=== PATIENT | male | born 1945 | race Caucasian/White ===

== ENCOUNTER 2019-11-03 12:14 | Outpatient (CLI) | payer MEDICARE, OTHER, SELFPAY ==
--- NOTE | 2019-11-03 12:23 | XR_ITS ---
WS: [id number] CHEST 2 VIEWS HISTORY: HYPOXIA COMPARISON: 01/04/2019 Lungs: Very minimal scarring or atelectasis at the LEFT lung base/lingula which was present on the pr ior study. On the lateral projection there is an increased opacification over the costophrenic angles which is probably related to the LEFT lower lung field chronic opacification. No pneumonia. No pneum othorax or pleural effusion. Cardiac size: Normal. Mediastinum/Aorta: Normal mediastinum. Bones: Normal. XR/XR chest 2V* [id number] IMPRESSION: Stable chest, no pneumonia.
== END 2019-11-03 12:15 | disposition home or self-care (01) ==
PROVIDERS: Family Provider Internal Medicine; PCP Internal Medicine; Visit Provider Nurse Practitioner Family
DX: R09.02 Hypoxemia (principal)
CPT/HCPCS: 71046

== ENCOUNTER → 2019-12-05 07:59 | Outpatient (BNVA) | payer MEDICARE, OTHER, SELFPAY | PROVIDERS: Family Provider Internal Medicine; PCP Internal Medicine; Referring Provider Internal Medicine; Visit Provider Specialist | DX: R41.9 Unspecified symptoms and signs involving cognitive functions and awareness (principal); G47.33 Obstructive sleep apnea (adult) (pediatric) | CPT/HCPCS: 99204 ==

== ENCOUNTER 2019-12-21 10:37 | Outpatient (CLI) | payer MEDICARE, OTHER, SELFPAY ==
--- NOTE | 2019-12-21 10:57 | NMCV_ITS ---
NM ziggy perf SPECT r/s* [id number] Obey Fatima Age: 74 Gender: M : 1945 Exam Date: 12/21/2019 11:41 Ordering Phys: Mirna Prabhakar MD Technologist: HARJINDER Guadalupe Exam Location: [facility] [place] Indications: Chest pain STRESS TEST Please see separate stress test report in [facility] for full findings IMAGE PROTOCOL Rest/Stress 1 Lexiscan Day Radiopharmaceutical Dose (mCi) Administration Site Administered by Rest: Tc-99m 10.7 IV Dinora Rhodes, ACADEMIC COORDINATOR Sestamibi Stress:Tc-99m 32.4 IV Dinora Rhodes, ACADEMIC COORDINATOR Sestamibi Rest: 21-Dec-2019 60 Discovery 630 Stress: 21-Dec-2019 45 Discovery 630 0.4mg Lexiscan. Images obtained in supine and prone position. SPECT RESULTS Technical Quality: Good Raw Data Analysis: Normal Image Corrections: No attenuation or motion correction applied Summed Stress Score: 2 Summed Rest Score: 2 Summed Difference Score: 0 PERFUSION FINDINGS Small sized perfusion abnormality of mild severity of mid inferior wall on rest and supine stress images with improved tracer uptake in prone stress images. This is suggestive of attenuation artifact. FUNCTIONAL RESULTS (calculated via Gated SPECT) Stress Image LV EF (%): 61 Stress EDV (mL):102 TID: 1.25 Stress ESV (mL):40 FUNCTIONAL FINDINGS: The left ventricle is normal in size. Transient Ischemia Dilatation of 1.3. There is normal left ventricular systolic function. The left ventricular ejection fraction is normal with a value of 61%. There is normal left ventricular wall thickening. Normal end systolic and end diastolic volumes. IMPRESSIONS 1. Myocardial perfusion imaging is normal. Attenuation artifact noted in mid inferior wall. 2. Overall left ventricular systolic function is normal without regional wall motion abnormalities. 3. The left ventricular ejection fraction is normal with a value of 61%. 4. Transient Ischemia Dilatation of 1.3. This may represent subendocardial ischemia or hypertensive response. Clinical correlation is advised. 5. No prior similar studies to compare. Cass Le MD (Electronically Signed) Final Date: 22 December 2019 20:58 S
--- NOTE | 2019-12-21 10:57 | ECG_ITS ---
[facility] Test Date: 2019-12-21 Pat Name: Obey Fatima Department: Room: Gender: Male [employer]ing [employer] Tender: : 1945 Requested By: Mirna Chery Order Number: [id number] Daija MD: Cass Le M.D. Interpretive Statements NAME OF STUDY: LEXISCAN SESTAMIBI STRESS TEST INDICATION: Chest Pain PROCEDURE: At the baseline, the blood pressure was 112/66 mm Hg with a heart rate of 56 bpm. The electrocardiogram showed normal sinus rhythm, normal axis and normal ST and T's. The Lexiscan was infused over a period of 20 seconds. A total of 0.4 milligrams of Lexiscan was infused. The stress phase was continued for a total of 5 minutes. Heart rate at the end of the stress phase was 75 bpm with a blood pressure of 125/61 mm Hg. The EKG at the peak infusion revealed no significant ST-T wave changes. Sestamibi was injected 20 seconds after the Lexiscan infusion. Blood pressure at the end of the recovery phase was 123/66 mm Hg with a heart rate of 72 beats per minute. CONCLUSION: 1. Normal EKG response to LexiScan infusion. 2. No LexiScan induced chest pain or cardiac arrhythmia. 3. Normal blood pressure and heart rate response. 4. Sestamibi/sestamibi perfusion scan pending; see separate report. Electronically Signed On 12-21-2019 20:20:36 CDT by Cass Le M.D. [email or web address]
[2019-12-21 10:58] VITALS: BMI 25.7
[2019-12-21] MEDS: regadenoson 0.4 Mg/5 ml Syringe IVP (12:37)
[2019-12-21 12:50] VITALS: BP 122/60; PULSE 72
== END 2019-12-21 10:38 | disposition home or self-care (01) ==
LOC: CDL 10:38
PROVIDERS: PCP Internal Medicine; Visit Provider Internal Medicine
DX: R07.9 Chest pain, unspecified (principal); I25.9 Chronic ischemic heart disease, unspecified
CPT/HCPCS: 78452; 93017; A9500; J2785

== ENCOUNTER 2019-12-27 20:00 | Outpatient (CLI) | payer MEDICARE, OTHER, SELFPAY | END 2019-12-27 20:01 | disposition home or self-care (01) | LOC: SLEEP 12-28 11:31 | PROVIDERS: PCP Internal Medicine; Visit Provider Specialist | DX: G47.33 Obstructive sleep apnea (adult) (pediatric) (principal) | CPT/HCPCS: 95810 ==

== ENCOUNTER 2020-01-15 20:00 | Outpatient (CLI) | payer MEDICARE, OTHER, SELFPAY | END 2020-01-15 20:01 | disposition home or self-care (01) | LOC: SLEEP 01-16 09:03 | PROVIDERS: PCP Internal Medicine; Visit Provider Specialist | DX: G47.33 Obstructive sleep apnea (adult) (pediatric) (principal) | CPT/HCPCS: 95811 ==

== ENCOUNTER 2020-03-04 12:43 | Outpatient (CLI) | payer MEDICARE, OTHER, SELFPAY ==
--- NOTE | 2020-03-04 12:51 | XR_ITS ---
WS: [id number] RIBS RIGHT WITH CHEST TECHNIQUE: 3 views of the right ribs with PA chest CLINICAL INFORMATION: PAIN IN RIB, S/P TRAUMA COMPARISON: November 03, 2019 and FINDINGS: Lungs are well aerated. No acute pulmonary infiltrates. Normal cardiac silhouette. No focal pneumonia or pleural fluid. Cortical irregularity right lower lateral ribs involving the ninth and 10th ribs anterolaterally appe ars new since 2019 and likely represents acute to subacute rib fractures. No displaced fractures. No pneumothorax. XR/XR ribs RT mn 3V w CXR1V [id number] IMPRESSION: 1. Suspected right ninth and 10th distal anterolateral minimally displaced rib fractures. These appear new since 2019. 2. No displaced rib fractures. 3. Lungs are well aerated. No pneumothorax.
== END 2020-03-04 12:44 | disposition home or self-care (01) ==
LOC: RADWPI 12:49
PROVIDERS: PCP Internal Medicine; Visit Provider Internal Medicine
DX: R07.81 Pleurodynia (principal)
CPT/HCPCS: 71101

== ENCOUNTER → 2020-03-06 07:43 | Outpatient (BNVA) | payer MEDICARE, OTHER, SELFPAY | PROVIDERS: PCP Internal Medicine; Visit Provider Urology | DX: Z12.5 Encounter for screening for malignant neoplasm of prostate (principal); E29.1 Testicular hypofunction; N40.1 Benign prostatic hyperplasia with lower urinary tract symptoms; R35.8 Other polyuria; Z80.42 Family history of malignant neoplasm of prostate; N52.9 Male erectile dysfunction, unspecified | CPT/HCPCS: 81003; 84403; G0103 ==

== ENCOUNTER 2021-01-13 09:01 | Outpatient (CLI) | payer MEDICARE, OTHER, SELFPAY ==
--- NOTE | 2021-01-13 09:17 | CT_ITS ---
WS: [id number] CT NECK TECHNIQUE: Contrast-enhanced CT of the neck with coronal and sagittal reformatted images. CLINICAL INFORMATION: LYMPHADENOPATHY COMPARISON: None. DLP: 1061.[address] [facility] use at least one of these dose optimization techniques: automated e xposure control; mA and/or kV adjustment per patient size (includes targeted exams where dose is matc hed to clinical indication); or iterative reconstruction. FINDINGS: Palpable marker in the left lower neck in the area of concern. Tiny amount of skin thickening in this area with a tiny cutaneous and subcutaneous nodule measuring 3 mm likely tiny sebaceous cyst. This h as a benign appearance. Small traversing vein and this area. No suspicious abnormality in this area. Parotid glands are normal. Normal submandibular glands. Normal parapharyngeal fat. No evidence of sup raglottic or glottic mass. Normal vallecula and piriform sinuses. No subglottic stenosis. Lung apices are well aerated. Mastoid air cells are well aerated. Paranasal sinuses are well aerated. Mild spondylitic changes cerv ical spine with hypertrophic changes at C6-7. No cervical lymphadenopathy. Small amount of atheromato us plaque right proximal ICA. No significant left carotid atheromatous plaque. CT/CT neck w con* [id number] IMPRESSION: 1. No suspicious abnormalities in the area of palpable concern left lower neck . There is a tiny area of nodular skin thickening in this area likely a tiny se baceous cyst. 2. Normal salivary glands. 3. No cervical lymphadenopathy. 4. Mild spondylitic changes cervical spine. 5. Mild atheromatous plaque right proximal ICA
[2021-01-13 09:44] LABS: Blood Urea Nitrogen 16 mg/dL (8-23)
[2021-01-13] MEDS: iohexol 300 mg/mL 100 mL Btl IV (09:50)
== END 2021-01-13 09:02 | disposition home or self-care (01) ==
PROVIDERS: PCP Internal Medicine; Visit Provider Internal Medicine
DX: R59.1 Generalized enlarged lymph nodes (principal); I70.8 Atherosclerosis of other arteries
CPT/HCPCS: 70491; 82565; 84520; Q9967

== ENCOUNTER → 2021-01-14 08:10 | Outpatient (BNVA) | payer MEDICARE, OTHER, SELFPAY | PROVIDERS: PCP Internal Medicine; Visit Provider Urology | DX: N52.9 Male erectile dysfunction, unspecified (principal); N40.1 Benign prostatic hyperplasia with lower urinary tract symptoms; Z80.42 Family history of malignant neoplasm of prostate | CPT/HCPCS: 81003; 84153; 84403 ==

== ENCOUNTER → 2021-08-08 08:40 | Outpatient (BNVA) | payer MEDICARE, OTHER, SELFPAY | PROVIDERS: PCP Internal Medicine; Visit Provider Specialist | DX: G31.84 Mild cognitive impairment of uncertain or unknown etiology (principal); G45.9 Transient cerebral ischemic attack, unspecified; E16.2 Hypoglycemia, unspecified; G47.33 Obstructive sleep apnea (adult) (pediatric) | CPT/HCPCS: 96116; 99214; 99215 ==

== ENCOUNTER 2021-09-30 10:30 | Outpatient (CLI) | payer MEDICARE, OTHER, SELFPAY ==
--- NOTE | 2021-09-30 11:00 | MR_ITS ---
WS: [id number] MRA HEAD TECHNIQUE: Axial 3-D TOF images obtained with axial images and axial, sagittal, and coronal 2-D refor matted images. CLINICAL INFORMATION: G45.9 - Transient cerebral ischemic attack, unspecified COMPARISON: None. FINDINGS: Distal vertebral arteries are patent. Basilar artery is patent. Normal vascularity to the BOWL[employer] territo ry bilaterally. Both ICAs are patent at the skull base. Normal variant hypoplastic RIGHT A1. Normal vascularity to th e DARIO and MCA territories bilaterally. Patent anterior communicating artery. No evidence of flow-limi ting stenosis or aneurysm. MR/MR angio head wo con [id number] IMPRESSION: Normal intracranial MRA.
== END 2021-09-30 10:31 | disposition home or self-care (01) ==
LOC: RAD 10:32
PROVIDERS: PCP Internal Medicine; Visit Provider Specialist
DX: G45.9 Transient cerebral ischemic attack, unspecified (principal)
CPT/HCPCS: 70544

== ENCOUNTER 2021-09-30 10:31 | Outpatient (CLI) | payer MEDICARE, OTHER, SELFPAY ==
--- NOTE | 2021-09-30 11:15 | MR_ITS ---
WS: [id number] MRI HEAD WITHOUT CONTRAST TECHNIQUE: Sagittal T1, T2 axial, T2 axial FLAIR, axial and coronal T1 images, axial susceptibility w eighted imaging, axial diffusion weighted images, and coronal T2 images were obtained. CLINICAL INFORMATION: G45.9 - Transient cerebral ischemic attack, unspecified COMPARISON: Outside MRI July 23, 2020 FINDINGS: No evidence of restricted diffusion to suggest acute ischemia. Ventricular system and basal cisterns are patent. Mild small vessel changes with mild parenchymal volume loss appears stable compared to Ma y 2020. Normal posterior fossa. Normal vascular flow voids at the skull base. No extra axial flui d collections. No evidence of mass or mass effect. Partial opacification of the LEFT mastoid air cell s. Normal posterior nasopharynx. Mio is normal in appearance. Normal brain stem. No hemosiderin on the susceptibly weighted images. Mild symmetric atrophy temporal lobes and hippocam pal formations. Normal optic chiasm and pituitary infundibulum. Normal cavernous sinuses and Meckel's cave. No other significant findings. MR/MR head wo con* [id number] IMPRESSION: 1. No evidence of restricted diffusion to suggest acute ischemia. 2. Mild small vessel changes with mild parenchymal volume loss unchanged since Jul 23 2020. 3. No hemosiderin on susceptibly weighted images. 4. Mild symmetric atrophy temporal lobes and hippocampal formations. 5. Normal optic chiasm and pituitary infundibulum. 6. Partial opacification LEFT mastoid air cells unchanged from previous. RIGHT mastoid air cells well aerated. Mild mucosal thickening in the ethmoid air dinesh ls. 7. No other significant findings.
--- NOTE | 2021-09-30 12:00 | MR_ITS ---
WS: [id number] MRA CAROTID WITHOUT GADOLINIUM ENHANCEMENT TECHNIQUE: Axial 2-D and 3-D TOF images obtained with axial images and axial, sagittal, and coronal 2 -D reformatted images. CLINICAL INFORMATION: G45.9 - Transient cerebral ischemic attack, unspecified COMPARISON: None. FINDINGS: Codominant and patent vertebral arteries bilaterally. RIGHT: RIGHT common carotid artery is patent. No significant RIGHT ICA stenosis. Mild atheromatous pl aque RIGHT carotid bulb. RIGHT ICA is patent to the skull base. LEFT: LEFT common carotid artery is patent. No signal LEFT ICA stenosis. LEFT ICA is patent to the sk ull base. Posterior nasopharynx appears normal. No cervical lymphadenopathy. MR/MR angio neck wo con [id number] IMPRESSION: 1. No significant ICA stenosis bilaterally. Both ICAs are patent to the skull base. 2. Mild atheromatous plaque RIGHT carotid bulb 3. Codominant and patent vertebral arteries bilaterally. 4. No other significant findings.
== END 2021-09-30 10:32 | disposition home or self-care (01) ==
LOC: RAD 10:32
PROVIDERS: PCP Internal Medicine; Visit Provider Specialist
DX: G45.9 Transient cerebral ischemic attack, unspecified (principal)
CPT/HCPCS: 70544; 70547; 70551

== ENCOUNTER 2021-10-03 10:32 | Outpatient (CLI) | payer MEDICARE, OTHER, SELFPAY ==
[2021-10-03] MEDS: barium sulfate 450 mL Oral Susp PO (11:45)
--- NOTE | 2021-10-03 12:00 | CT_ITS ---
WS: [id number] CT ABDOMEN TECHNIQUE: Noncontrast CT of the abdomen with coronal and sagittal reformatted images. Oral contrast only. 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 FINDINGS: Noncontrast CT of the abdomen. Oral contrast only. Noncontrast liver is normal. Normal GE junction. Normal gallbladder. Spleen is normal. Lung bases are well aerated. Noncontrast pancreas is normal. Normal caliber abdominal aorta. Mild aortic calcification. Adrenal gl ands are normal. No hydronephrosis in either kidney. Tiny incidental fat-containing umbilical hernia. Proximal small bowel is normal in appearance. Hypertrophic changes lower thoracic and upper lumbar spine. No adenopathy in the upper abdomen. CT/CT abdomen wo con [id number] IMPRESSION: 1. No acute findings in the abdomen. 2. Noncontrast pancreas is normal in appearance. No visualized pancreatic lesi ons on this noncontrast examination. MRI would be more sensitive for small panc reatic lesions if clinically indicated. 3. Normal caliber abdominal aorta with mild calcification. 4. Hypertrophic changes lower thoracic and upper lumbar spine. 5. No other significant findings.
== END 2021-10-03 10:33 | disposition home or self-care (01) ==
LOC: RAD 10:33
PROVIDERS: PCP Internal Medicine; Visit Provider Specialist
DX: D13.7 Benign neoplasm of endocrine pancreas (principal)
CPT/HCPCS: 74150

== ENCOUNTER → 2021-10-24 09:49 | Outpatient (BNVA) | payer MEDICARE, OTHER, SELFPAY | PROVIDERS: PCP Internal Medicine; Visit Provider Specialist | DX: G31.84 Mild cognitive impairment of uncertain or unknown etiology (principal) | CPT/HCPCS: 99214 ==

== ENCOUNTER 2022-01-05 12:49 | Outpatient (CLI) | payer MEDICARE, OTHER, SELFPAY ==
[2022-01-05 14:16] LABS: Prostate Specific AG Urology 1.11 ng/mL (0-4)
== END 2022-01-05 12:50 | disposition home or self-care (01) ==
PROVIDERS: PCP Internal Medicine; Visit Provider Urology
DX: N40.1 Benign prostatic hyperplasia with lower urinary tract symptoms (principal)
CPT/HCPCS: 36415; 84153

== ENCOUNTER → 2022-01-15 07:49 | Outpatient (BNVA) | payer MEDICARE, OTHER, SELFPAY | PROVIDERS: PCP Internal Medicine; Visit Provider Urology | DX: N40.1 Benign prostatic hyperplasia with lower urinary tract symptoms (principal); Z80.42 Family history of malignant neoplasm of prostate; N52.9 Male erectile dysfunction, unspecified | CPT/HCPCS: 81003; 99213 ==

== ENCOUNTER 2022-07-30 11:20 | Outpatient (CLI) | payer MEDICARE, OTHER, SELFPAY ==
--- NOTE | 2022-07-30 11:38 | MR_ITS ---
WS: [id number] MRI LUMBAR SPINE NONCONTRAST HISTORY: RADICULOPATHY, pain down both legs. COMPARISON: None available. TECHNIQUE: Sagittal and axial multisequence imaging is submitted. Small LEFT foraminal disc protrusion at C7-T1. Very mild straightening of the normal lumbar lordosis. Less than 2 mm retrolisthesis of L3 and L4. No marrow edema or fracture. Disc spaces are mildly desiccated and narrowed. Conus terminates normally at L1. L1-L2: Mild facet arthritis. No stenosis or disc protrusion. L2-L3: Moderate bilateral ligamentum flavum and facet joint arthritis encroaching towards the thecal sac. Annular disc bulging and osteophytes. Shallow LEFT foraminal disc protrusion. Mild encroachment upon the subarticular recesses and the traversing L3 nerve roots. No significant foraminal stenosis. L3-L4: Mild annular disc bulging with mild ligamentum flavum and facet arthritis. Shallow LEFT forami nal disc protrusion. Mild encroachment upon the subarticular recesses and the traversing L4 nerve roman ts. No significant stenosis. L4-L5: Mild annular disc bulging encroaching upon the subarticular recesses and the traversing L5 ner ve roots. Mild ligamentum flavum and facet arthritis. No significant foraminal or central stenosis. L5-S1: Mild disc bulging with a central and LEFT foraminal disc protrusions moderate ligamentum flavu m and facet hypertrophy. Disc and osteophyte contact on the S1 nerve roots, LEFT greater than RIGHT. Moderate LEFT foraminal stenosis. Mild disc contact on the exiting LEFT L5 nerve root. Paravertebral soft tissues are normal. MR/MR lumbar spine wo con* [id number] IMPRESSION: 1. L5-S1: Moderate LEFT foraminal stenosis. 2. L5-S1: Central and LEFT foraminal disc protrusions and facet arthritis. Dis c contact on the S1 nerve roots, LEFT greater than RIGHT. 3. L2-3: Shallow LEFT foraminal disc protrusion at L2-3. Mild disc encroachmen t upon the subarticular recesses and the traversing L3 nerve roots. 4. L3-4: Shallow LEFT foraminal disc protrusion. Mild disc encroachment upon t he subarticular recesses and the traversing L4 nerve roots. 5. L4-5: Mild subarticular recess encroachment with encroachment upon the cheri ersing L5 nerve roots. 6. LEFT foraminal disc protrusion at C7-T1.
== END 2022-07-30 11:21 | disposition home or self-care (01) ==
LOC: RAD 11:22
PROVIDERS: PCP Internal Medicine; Visit Provider Surgery
DX: M51.17 Intervertebral disc disorders with radiculopathy, lumbosacral region (principal); M48.07 Spinal stenosis, lumbosacral region; M25.78 Osteophyte, vertebrae
CPT/HCPCS: 72148

== ENCOUNTER → 2022-11-11 14:36 | Outpatient (BNVA) | payer MEDICARE, OTHER, SELFPAY | PROVIDERS: PCP Internal Medicine; Visit Provider Specialist | DX: R29.90 Unspecified symptoms and signs involving the nervous system (principal); G31.84 Mild cognitive impairment of uncertain or unknown etiology | CPT/HCPCS: 96116; 99215 ==

== ENCOUNTER 2022-11-23 09:07 | Outpatient (CLI) | payer MEDICARE, OTHER, SELFPAY ==
[2022-11-30 22:55] LABS: Amyloid Beta 40 189 pg/mL; Amyloid Beta 42 30 pg/mL; Amyloid Beta 42/40 Ratio 0.159 (> OR = 0.170)
[2022-12-03 12:34] LABS: Apolipoprotein E (ApoE) Isofor E4/E4
== END 2022-11-23 09:08 | disposition home or self-care (01) ==
PROVIDERS: PCP Internal Medicine; Visit Provider Specialist
DX: G31.84 Mild cognitive impairment of uncertain or unknown etiology (principal)
CPT/HCPCS: 0346U; 36415; 82542

== ENCOUNTER → 2022-12-18 11:45 | Outpatient (BNVA) | payer MEDICARE, OTHER, SELFPAY | PROVIDERS: PCP Internal Medicine; Visit Provider Specialist | DX: K75.9 Inflammatory liver disease, unspecified (principal); G31.84 Mild cognitive impairment of uncertain or unknown etiology | CPT/HCPCS: 99215 ==

== ENCOUNTER → 2023-03-23 08:32 | Outpatient (BNVA) | payer MEDICARE, OTHER, SELFPAY | PROVIDERS: PCP Internal Medicine; Visit Provider Specialist | DX: G31.84 Mild cognitive impairment of uncertain or unknown etiology (principal); K75.9 Inflammatory liver disease, unspecified | CPT/HCPCS: 99214 ==

== ENCOUNTER 2023-04-05 13:00 | Outpatient (CLI) | payer MEDICARE, OTHER, SELFPAY | END 2023-04-05 13:01 | disposition home or self-care (01) | LOC: SLEEP 04-06 10:39 | PROVIDERS: PCP Internal Medicine; Visit Provider Otolaryngology | DX: G47.33 Obstructive sleep apnea (adult) (pediatric) (principal); R09.02 Hypoxemia | CPT/HCPCS: G0399 ==

== ENCOUNTER → 2023-07-13 09:09 | Outpatient (BNVA) | payer MEDICARE, OTHER, SELFPAY | PROVIDERS: PCP Internal Medicine; Visit Provider Specialist | DX: G31.84 Mild cognitive impairment of uncertain or unknown etiology (principal) | CPT/HCPCS: 99213 ==

== ENCOUNTER → 2023-08-26 09:30 | Outpatient (BNVA) | payer MEDICARE, OTHER, SELFPAY | PROVIDERS: PCP Internal Medicine; Visit Provider Nurse Practitioner Family | DX: D48.5 Neoplasm of uncertain behavior of skin (principal); L57.0 Actinic keratosis; L71.8 Other rosacea; L82.1 Other seborrheic keratosis; D22.5 Melanocytic nevi of trunk | CPT/HCPCS: 11102; 17000; 99203 ==

== ENCOUNTER → 2023-09-21 09:05 | Outpatient (BNVA) | payer MEDICARE, OTHER, SELFPAY | PROVIDERS: PCP Internal Medicine; Visit Provider Dermatology | DX: C44.319 Basal cell carcinoma of skin of other parts of face (principal) | CPT/HCPCS: 13132; 17311 ==

== ENCOUNTER → 2023-12-31 14:06 | Outpatient (BNVA) | payer MEDICARE, OTHER, SELFPAY | PROVIDERS: PCP Internal Medicine; Visit Provider Specialist | DX: G31.84 Mild cognitive impairment of uncertain or unknown etiology (principal); R03.0 Elevated blood-pressure reading, without diagnosis of hypertension | CPT/HCPCS: 96116; 99214; 99215 ==

== ENCOUNTER 2024-01-26 12:40 | Outpatient (CLI) | payer MEDICARE, OTHER, SELFPAY | END 2024-01-26 12:41 | disposition home or self-care (01) | PROVIDERS: PCP Internal Medicine; Visit Provider Specialist | DX: G31.84 Mild cognitive impairment of uncertain or unknown etiology (principal) | CPT/HCPCS: 36415; 83520 ==

== ENCOUNTER → 2024-03-14 08:54 | Outpatient (BNVA) | payer MEDICARE, OTHER, SELFPAY | PROVIDERS: PCP Internal Medicine; Visit Provider Nurse Practitioner Family | DX: L82.1 Other seborrheic keratosis (principal); D22.5 Melanocytic nevi of trunk; Z08 Encounter for follow-up examination after completed treatment for malignant neoplasm; Z85.828 Personal history of other malignant neoplasm of skin; D48.5 Neoplasm of uncertain behavior of skin; L57.0 Actinic keratosis | CPT/HCPCS: 11102; 17000; 99213 ==

== ENCOUNTER → 2024-04-04 13:54 | Outpatient (BNVA) | payer MEDICARE, OTHER, SELFPAY | PROVIDERS: PCP Internal Medicine; Visit Provider Specialist | DX: G31.84 Mild cognitive impairment of uncertain or unknown etiology (principal); R03.0 Elevated blood-pressure reading, without diagnosis of hypertension | CPT/HCPCS: 99215 ==

== ENCOUNTER 2024-07-21 08:53 | Outpatient (CLI) | payer MEDICARE, OTHER, SELFPAY ==
--- NOTE | 2024-07-21 08:56 | MR_ITS ---
WS: [id number] MRI HEAD WITH CONTRAST WITH ATTENTION TO THE INTERNAL AUDITORY CANALS TECHNIQUE: Sagittal T1, T2 axial, T2 axial flair, axial susceptibility weighted imaging, axial diffusion weighted images, and coronal T2 images were obtained. Pre and post T1 axial and post T1 coronal images. ADC and FSPGR images. Post gadolinium images with attention to the internal auditory canals. Axial fiesta imaging. CLINICAL INFORMATION: DIZZINESS/GIDDINESS COMPARISON: MRI 2021 FINDINGS: No evidence of restricted diffusion to suggest acute ischemia. Ventricular system and basal cisterns are patent. Mild small vessel changes. Mild to moderate parenchymal volume loss. Normal posterior fossa. Normal vascular flow voids at the skull base. No extra-axial fluid collections. Paranasal sinuses are well aerated. Mild mucosal thickening LEFT mastoid air cells. Normal posterior nasopharynx. No hemosiderin. Normal optic chiasm and pituitary infundibulum. Proximal 7th and 8th cranial nerves are normal in appearance. Normal trigeminal nerve root entry zones. No evidence of enhancing IAC or CP angle mass. No abnormal intracranial enhancement. Normal dural venous sinuses. MR/MR iac's wo/w con* [id number] IMPRESSION: 1. No evidence of restricted diffusion to suggest acute ischemia. 2. Mild small vessel changes with mild to moderate parenchymal volume loss. 3. 7th and 8th cranial nerves are normal in appearance. No evidence of enhanci ng IAC or CP angle mass. 4. Paranasal sinuses are well aerated. Mild mucosal thickening LEFT mastoid ai r cells. 5. No hemosiderin.
[2024-07-21] MEDS: gadobenate dimeglumine 20 mL vial IV (09:40)
== END 2024-07-21 08:54 | disposition home or self-care (01) ==
LOC: RAD 08:54
PROVIDERS: PCP Internal Medicine; Visit Provider Specialist
DX: R42 Dizziness and giddiness (principal); R93.0 Abnormal findings on diagnostic imaging of skull and head, not elsewhere classified; H74.8X2 Other specified disorders of left middle ear and mastoid
CPT/HCPCS: 70553

== ENCOUNTER → 2024-07-25 07:56 | Outpatient (BNVA) | payer MEDICARE, OTHER, SELFPAY | PROVIDERS: PCP Internal Medicine; Visit Provider Specialist | DX: G31.84 Mild cognitive impairment of uncertain or unknown etiology (principal); R03.0 Elevated blood-pressure reading, without diagnosis of hypertension | CPT/HCPCS: 99214 ==

== ENCOUNTER 2024-08-01 11:46 | Outpatient (CLI) | payer MEDICARE, OTHER, SELFPAY ==
[2024-08-01 12:46] LABS: Basophils # 0.1 10^3/uL (0.0-0.1); Eosinophils # 0.1 10^3/uL (0.0-0.8); Eosinophils % 1.5 %; Hematocrit 45.3 % (37-53); Lymphocytes # 1.8 10^3/uL (0.8-4.8); Lymphocytes % 25.4 %; Mean Corpuscular HGB Conc 34.2 g/dL (30-55); Mean Corpuscular Hemoglobin 32.2 pg (27-33); Mean Corpuscular Volume 94.2 fl (82-101); Mean Platelet Volume 9.3 fL (7.4-10.4); Monocytes # 0.6 10^3/uL (0.2-0.9); Monocytes % 8.7 %; Neutrophils # 4.52 10^3/uL (1.8-7.7); Neutrophils % 63.1 %; Nucleated Red Blood Cells % 0 %; Platelet Count 172 10^3/cmm (157-399); Red Blood Count 4.81 10^6/uL (3.85-5.65); Red Cell Distribution Width 14.1 % (12.1-15.1); White Blood Count 7.16 10^3/uL (3.29-11.43)
[2024-08-01 12:50] LABS: Erythrocyte Sedimentation Rate 4 mm/hr (0-10)
[2024-08-01 13:13] LABS: Alanine Aminotransferase 17 U/L (0-41); Albumin Level 4.1 g/dL (3.5-5.2); Alkaline Phosphatase 68 U/L (40-130); Aspartate Amino Transferase 18 U/L (0-40); Blood Urea Nitrogen 14 mg/dL (8-23); Calcium 8.8 mg/dL (8.5-10.5); Carbon Dioxide 25 mmol/L (22-29); Chloride 104 mmol/L (98-107); Globulin 2.5 g/dL (1.3-4.6); Glucose 112 mg/dL (65-115); Osmolality Calculated 287 mOsm/kg (285-295); Sodium 138 mmol/L (136-145); Thyroid Stimulating Hormone 2.48 uIU/mL (0.27-4.20); Total Bilirubin 0.6 mg/dL (0.15-1.2); Total Protein 6.6 g/dL (6.6-8.7)
[2024-08-05 00:34] LABS: Treponema pallidum Ab NON-REACTIVE
== END 2024-08-01 11:47 | disposition home or self-care (01) ==
LOC: LAB 11:49
PROVIDERS: PCP Internal Medicine; Visit Provider Specialist
DX: R42 Dizziness and giddiness (principal); E03.9 Hypothyroidism, unspecified; A52.8 Late syphilis, latent; D89.89 Other specified disorders involving the immune mechanism, not elsewhere classified; Z01.812 Encounter for preprocedural laboratory examination; I44.0 Atrioventricular block, first degree
CPT/HCPCS: 36415; 80053; 84443; 85025; 85651; 86780; 93005

== ENCOUNTER 2024-08-08 15:42 | Outpatient (CLI) | payer MEDICARE, OTHER, SELFPAY ==
--- NOTE | 2024-08-08 16:00 | MR_ITS ---
WS: [email or web address] MRI BRAIN WITHOUT CONTRAST HISTORY: G31.84 - Mild cognitive impairment of uncertain or unknow... COMPARISON: 07/21/2024, 09/30/2021 TECHNIQUE: Diffusion imaging, multiplanar T1, T2 and FLAIR imaging obtained. No evidence for acute infarct or hemorrhage. Lara-white matter differentiation is normal. Mild hippocampal atrophy. There is mild small vessel ischemic change. Mild to moderate volume loss in the cerebrum and cerebellum is stable. Mildly prominent ventricles and extra-axial spaces on the basis of atrophy. No inferior displacement of cerebellar tonsils. The sella turcica and pituitary gland are unremarkable. Dural venous sinuses and [place] demonstrate no abnormality on this unenhanced studies. Paranasal sinuses: Clear. Mastoid air cells: Moderate fluid in the LEFT mastoid air cells similar to the prior MRI of 07/21/2024. Calvarium and scalp: Intact. MR/MR head wo con* [id number] IMPRESSION: 1. Normal diffusion imaging. No acute infarct. 2. Stable mild to moderate volume loss and mild small vessel changes. No large infarct. 3. No prior hemorrhage. 4. No large territory infarct. 5. LEFT mastoid air cell effusion. 6. Mild bilateral hippocampal atrophy.
== END 2024-08-08 15:43 | disposition home or self-care (01) ==
PROVIDERS: PCP Internal Medicine; Visit Provider Specialist
DX: G31.84 Mild cognitive impairment of uncertain or unknown etiology (principal); R93.0 Abnormal findings on diagnostic imaging of skull and head, not elsewhere classified; H74.8X2 Other specified disorders of left middle ear and mastoid; G31.89 Other specified degenerative diseases of nervous system
CPT/HCPCS: 70551

== ENCOUNTER → 2024-09-11 07:57 | Outpatient (BNVA) | payer MEDICARE, OTHER, SELFPAY | PROVIDERS: PCP Internal Medicine; Visit Provider Nurse Practitioner Family | DX: L57.8 Other skin changes due to chronic exposure to nonionizing radiation (principal); D18.01 Hemangioma of skin and subcutaneous tissue; L82.1 Other seborrheic keratosis; Z08 Encounter for follow-up examination after completed treatment for malignant neoplasm; Z85.828 Personal history of other malignant neoplasm of skin; L57.0 Actinic keratosis | CPT/HCPCS: 17000; 99213 ==

== ENCOUNTER 2024-10-03 08:45 | Oncology outpatient (recurring) (ONCR) | payer MEDICARE, OTHER, SELFPAY ==
[2024-09-25] MEDS: diphenhydrAMINE 50 mg/mL SDV 1mL IVP (10:42)
[2024-09-25 10:53] VITALS: BP 137/82; PULSE 61; RESP 17; TEMP 36.5; O2SAT 94
[2024-09-25] MEDS: donanemab-azbt 700 MG in sodium chloride 0.9% 50 ML 180 MG IV (10:57)
[2024-09-25 12:11] VITALS: BP 109/63; PULSE 58; RESP 18; TEMP 36.6; O2SAT 96
--- NOTE | 2024-10-03 08:45 | MR_ITS ---
WS: [id number] MRI BRAIN WITHOUT CONTRAST HISTORY: G31.84 - Mild cognitive impairment of uncertain, follow-up Alzheimer's treatment. COMPARISON: 09/27/2024, 08/08/2024, 07/21/2024 TECHNIQUE: Diffusion imaging, multiplanar T1, T2 and FLAIR imaging obtained. No restricted diffusion to suggest ischemia. No acute infarcts. Mild supratentorial white matter changes. There is increased T2 and FLAIR signal adjacent to the ventricles which is stable and minimal. No prior infarct. Stable mild symmetric volume loss within the cerebrum and cerebellum. Mild bilateral hippocampal atrophy. Ventricles and extra-axial spaces are normal. No inferior displacement of cerebellar tonsils. The sella turcica and pituitary gland are unremarkable. Negative orbits and globes. Dural venous sinuses and [place] demonstrate no abnormality on this unenhanced studies. Paranasal sinuses: Clear. Mastoid air cells: Small amount of fluid in the LEFT mastoid air cells as seen on the prior study. RIGHT mastoid air cell is clear. Calvarium and scalp: Intact. MR/MR head wo con* [id number] IMPRESSION: 1. Normal diffusion imaging. No acute infarct. 2. Mild symmetric atrophy and mild small vessel changes. No interval change si nce 07/21/2024. 3. No new FLAIR or T2 signal abnormalities in the white matter. 4. No hemorrhage.
== END 2024-10-05 23:59 | disposition home or self-care (01) ==
LOC: RAD 10-04 → ONCMED 10-04 10:18
PROVIDERS: PCP Internal Medicine; Visit Provider Specialist
DX: G31.84 Mild cognitive impairment of uncertain or unknown etiology (principal); G31.89 Other specified degenerative diseases of nervous system; R93.0 Abnormal findings on diagnostic imaging of skull and head, not elsewhere classified; H74.8X2 Other specified disorders of left middle ear and mastoid
CPT/HCPCS: 70551; 96365; 96372; 96375; 99213; G0463; J0175; J1200; J7050; J9999

== ENCOUNTER 2024-10-23 09:38 | Oncology outpatient (recurring) (ONCR) | payer MEDICARE, OTHER, SELFPAY ==
[2024-10-23 09:46] VITALS: BP 113/66; PULSE 60; RESP 16; TEMP 36.9; O2SAT 95
[2024-10-23] MEDS: diphenhydrAMINE 50 mg/mL SDV 1mL IVP (10:12)
[2024-10-23] MEDS: donanemab-azbt 700 MG in sodium chloride 0.9% 50 ML 180 MG IV (10:39)
[2024-10-23 11:28] VITALS: BP 146/77; PULSE 53; RESP 16; TEMP 36.7; O2SAT 95
== END 2024-11-05 23:59 | disposition home or self-care (01) ==
LOC: ONCMED 09:39
PROVIDERS: PCP Internal Medicine; Visit Provider Specialist
DX: G30.9 Alzheimer's disease, unspecified (principal); F02.80 Dementia in other diseases classified elsewhere, unspecified severity, without behavioral disturbance, psychotic disturbance, mood disturbance, and anxiety; Z79.899 Other long term (current) drug therapy
CPT/HCPCS: 96375; 96413; 99213; J0175; J1200; J7050; J9999

== ENCOUNTER 2024-11-07 11:54 | Outpatient (CLI) | payer MEDICARE, OTHER, SELFPAY ==
--- NOTE | 2024-11-07 11:45 | MR_ITS ---
WS: [email or web address] MRI HEAD WITHOUT CONTRAST TECHNIQUE: Sagittal T1, T2 axial, T2 axial FLAIR, axial and coronal T1 images, axial susceptibility weighted imaging, axial diffusion weighted images, and coronal T2 images were obtained. CLINICAL INFORMATION: G31.84 - Mild cognitive impairment of uncertain or unknow... COMPARISON: 10/03/2024 and 09/27/2024 FINDINGS: No evidence of restricted diffusion to suggest acute ischemia. Ventricular system and basilar cisterns are patent. Mild supratentorial white matter changes stable compared to previous. Stable mild to moderate parenchymal volume loss. Mild mesial temporal lobe and hippocampal atrophy unchanged. No new signal abnormalities. Normal posterior fossa. Normal vascular flow voids at the skull base. No extra- axial fluid collections. No evidence of mass or mass effect. Paranasal sinuses are well aerated. Mild mucosal thickening LEFT mastoid tip. No hemosiderin on the susceptibly weighted images. Normal optic chiasm and pituitary infundibulum. MR/MR head wo con* [id number] IMPRESSION: 1. No significant change compared to previous. 2. No evidence of restricted diffusion to suggest acute ischemia. 3. Mild small vessel changes with mild to moderate parenchymal volume loss unc hanged. 4. No hemosiderin on susceptibility-weighted images. 5. No other suspicious findings.
== END 2024-11-07 11:55 | disposition home or self-care (01) ==
LOC: RAD 11:55
PROVIDERS: PCP Internal Medicine; Visit Provider Specialist
DX: G31.84 Mild cognitive impairment of uncertain or unknown etiology (principal)
CPT/HCPCS: 70551

== ENCOUNTER → 2024-11-13 13:03 | Outpatient (BNVA) | payer MEDICARE, OTHER, SELFPAY | PROVIDERS: PCP Internal Medicine; Visit Provider Nurse Practitioner Family | DX: L57.8 Other skin changes due to chronic exposure to nonionizing radiation (principal); X32.XXXA Exposure to sunlight, initial encounter; L57.0 Actinic keratosis; L81.4 Other melanin hyperpigmentation; Z08 Encounter for follow-up examination after completed treatment for malignant neoplasm; Z85.828 Personal history of other malignant neoplasm of skin; L30.0 Nummular dermatitis | CPT/HCPCS: 11102; 17000; 99213 ==

== ENCOUNTER 2024-11-20 09:59 | Oncology outpatient (recurring) (ONCR) | payer MEDICARE, OTHER, SELFPAY ==
[2024-11-20] MEDS: donanemab-azbt 700 MG in sodium chloride 0.9% 50 ML 180 MG IV (10:59)
[2024-11-20 12:00] VITALS: BP 132/74; PULSE 58; RESP 16; TEMP 36.2; O2SAT 97
--- NOTE | 2024-11-20 12:01 | PC.NURSE ---
Patient was stating that he feels dizzy after this dose, BP is normal and the rest of the patients fluids were given. He is alert and appropriate.
== END 2024-12-05 23:59 | disposition home or self-care (01) ==
PROVIDERS: PCP Internal Medicine; Visit Provider Specialist
DX: G30.9 Alzheimer's disease, unspecified (principal); F02.80 Dementia in other diseases classified elsewhere, unspecified severity, without behavioral disturbance, psychotic disturbance, mood disturbance, and anxiety; Z79.899 Other long term (current) drug therapy
CPT/HCPCS: 96375; 96413; J0175; J7050; J9999

== ENCOUNTER 2024-12-04 09:22 | Outpatient (CLI) | payer MEDICARE, OTHER, SELFPAY ==
--- NOTE | 2024-12-04 09:28 | MR_ITS ---
WS: [email or web address] MRI HEAD WITHOUT CONTRAST TECHNIQUE: Sagittal T1, T2 axial, T2 axial FLAIR, axial and coronal T1 images, axial susceptibility weighted imaging, axial diffusion weighted images, and coronal T2 images were obtained. CLINICAL INFORMATION: G31.84 - Mild cognitive impairment of uncertain or unknow... COMPARISON: MRI 11/07/2024 FINDINGS: No evidence of restricted diffusion to suggest acute ischemia. Ventricular system and basilar cisterns are patent. Mild supratentorial white matter changes stable compared to previous. Stable mild to moderate parenchymal volume loss. Mild mesial temporal lobe and hippocampal atrophy unchanged. No new signal abnormalities. Normal posterior fossa. Normal vascular flow voids at the skull base. No extra- axial fluid collections. Slight mucosal thickening ethmoid air cells. Mild mucosal thickening LEFT mastoid tip. No hemosiderin on the susceptibly weighted images. Normal optic chiasm and pituitary infundibulum. Normal cavernous sinuses. Normal Meckel's cave. Visualized 7th and 8th cranial nerves appear normal. MR/MR head wo con* [id number] IMPRESSION: 1. Overall no significant change since 11/07/2024 2. No evidence of restricted diffusion to suggest acute ischemia. 3. Mild small vessel changes with mild to moderate parenchymal volume loss unc hanged. 4. No hemosiderin on susceptibility-weighted images. 5. No acute findings.
== END 2024-12-04 09:23 | disposition home or self-care (01) ==
LOC: RAD 09:25
PROVIDERS: PCP Internal Medicine; Visit Provider Specialist
DX: G31.84 Mild cognitive impairment of uncertain or unknown etiology (principal); G93.89 Other specified disorders of brain; J34.89 Other specified disorders of nose and nasal sinuses
CPT/HCPCS: 70551

== ENCOUNTER 2024-12-18 09:53 | Oncology outpatient (recurring) (ONCR) | payer MEDICARE, OTHER, SELFPAY ==
[2024-12-18] MEDS: methylPREDNISolone sod succ 125 mg/2 mL INJ IVP (10:41)
[2024-12-18] MEDS: donanemab-azbt 1,050 MG in sodium chloride 0.9% 50 ML 220 MG IV (11:24)
[2024-12-18 12:08] VITALS: BP 109/59; PULSE 65; RESP 17; TEMP 36.3; O2SAT 98
== END 2025-01-05 23:59 | disposition home or self-care (01) ==
PROVIDERS: PCP Internal Medicine; Visit Provider Specialist
DX: G30.9 Alzheimer's disease, unspecified (principal); F02.80 Dementia in other diseases classified elsewhere, unspecified severity, without behavioral disturbance, psychotic disturbance, mood disturbance, and anxiety; R51.9 Headache, unspecified; R53.83 Other fatigue; R41.0 Disorientation, unspecified; Z79.899 Other long term (current) drug therapy
CPT/HCPCS: 96375; 96413; 99213; J0175; J2919; J7050; J9999

== ENCOUNTER 2025-01-22 08:25 | Oncology outpatient (recurring) (ONCR) | payer MEDICARE, OTHER, SELFPAY ==
[2025-01-22 08:32] VITALS: BP 127/73; PULSE 64; RESP 17; TEMP 36.8; O2SAT 97
[2025-01-22] MEDS: methylPREDNISolone sod succ 125 mg/2 mL INJ IV (08:53)
[2025-01-22] MEDS: donanemab-azbt 1,400 MG in sodium chloride 0.9% (100 ml) 100 ML 360 MG IV (09:34)
[2025-01-22 10:10] VITALS: BP 151/80; PULSE 65; RESP 17; TEMP 36.8; O2SAT 97
== END 2025-02-04 23:59 | disposition home or self-care (01) ==
PROVIDERS: PCP Internal Medicine; Visit Provider Specialist
DX: Z00.6 Encounter for examination for normal comparison and control in clinical research program (principal); G30.9 Alzheimer's disease, unspecified; F02.80 Dementia in other diseases classified elsewhere, unspecified severity, without behavioral disturbance, psychotic disturbance, mood disturbance, and anxiety; R03.0 Elevated blood-pressure reading, without diagnosis of hypertension; Z79.899 Other long term (current) drug therapy
CPT/HCPCS: 96375; 96413; 99214; J0175; J2919; J7050; J9999

== ENCOUNTER 2025-02-06 09:17 | Outpatient (CLI) | payer MEDICARE, OTHER, SELFPAY ==
--- NOTE | 2025-02-06 09:23 | XR_ITS ---
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 The pattern is bilaterally symmetrical. No fractures. Normal bilateral soft tissues. XR/XR hip BI 3-4V wo/w pel [id number] IMPRESSION: 1. 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
--- NOTE | 2025-02-06 09:23 | XR_ITS ---
WS: [id number] Exam: XR lumbar spine min 4V [id number] Date/Time of Exam: 02/06/2025 9:44 AM Reason For Exam: DEGENERATIVE DISC DZ, LUMBOSACRAL SPINE W/RADICULOPATHY DLP: No fracture or malalignment. Marked spondylosis. Facet arthropathy at all levels. Mild disc space narrowing from L2-S1. Mild degenerative retrolisthesis of L to on L3, L3 on L4, and L4 on L5. Slight levoscoliosis probably positional. XR/XR lumbar spine min 4V [id number] IMPRESSION: 1. Moderately advanced degenerative changes and spondylosis as detailed above. 2. No fracture or malalignment.
== END 2025-02-06 09:18 | disposition home or self-care (01) ==
PROVIDERS: PCP Internal Medicine; Visit Provider Internal Medicine
DX: M47.816 Spondylosis without myelopathy or radiculopathy, lumbar region (principal); M47.897 Other spondylosis, lumbosacral region; M43.16 Spondylolisthesis, lumbar region; M16.0 Bilateral primary osteoarthritis of hip
CPT/HCPCS: 72110; 73522

== ENCOUNTER 2025-02-20 09:27 | Oncology outpatient (recurring) (ONCR) | payer MEDICARE, OTHER, SELFPAY ==
[2025-02-20 10:00] VITALS: BP 124/67; PULSE 76; RESP 17; TEMP 35.5; O2SAT 98
[2025-02-20] MEDS: methylPREDNISolone sod succ 125 mg/2 mL INJ IV (10:12)
[2025-02-20] MEDS: donanemab-azbt 1,400 MG in sodium chloride 0.9% (100 ml) 100 ML 360 MG IV (11:03)
[2025-02-20 11:26] VITALS: BP 124/78; PULSE 74; RESP 17; TEMP 36.3; O2SAT 96
== END 2025-03-07 23:59 | disposition home or self-care (01) ==
PROVIDERS: PCP Internal Medicine; Visit Provider Specialist
DX: Z00.6 Encounter for examination for normal comparison and control in clinical research program (principal); G30.9 Alzheimer's disease, unspecified; F02.80 Dementia in other diseases classified elsewhere, unspecified severity, without behavioral disturbance, psychotic disturbance, mood disturbance, and anxiety; Z79.899 Other long term (current) drug therapy
CPT/HCPCS: 96413; J0175; J2919; J7050; J9999

== ENCOUNTER 2025-02-21 09:32 | Outpatient (CLI) | payer MEDICARE, OTHER, SELFPAY ==
--- NOTE | 2025-02-21 09:43 | MR_ITS ---
WS: [id number] MRI LUMBAR SPINE NONCONTRAST HISTORY: Degenerative disc disease, Radiculopathy COMPARISON: 07/30/2022 TECHNIQUE: Sagittal and axial multisequence imaging is submitted. Small disc osteophyte complexes in the cervical spine. Facet joint arthritis posteriorly at the T2 level. No cord compression. No signal abnormality in the cervical or thoracic spine. Mild straightening within normal lumbar lordosis. Very minimal retrolisthesis of L2 and L3. Mild osteitis along the L2 and L3 endplates. No compression fractures. Disc spaces are mildly narrowed and desiccated. Most significant narrowing at L2-3. Conus terminates normally at L1. L1-L2: Mild facet arthritis. No stenosis. L2-L3: Mild diffuse annular disc bulging. Disc bulging versus small bilateral foraminal osteophytes. Mild ligamentum flavum hypertrophy and facet arthritis. There is disc encroachment upon the subarticular recesses and traversing L3 nerve roots. Mild bilateral foraminal stenosis. L3-L4: Mild annular disc bulging with osteophytic ridging. Mild disc encroachment upon the subarticular recesses and traversing L4 nerve roots. Mild facet and ligamentum flavum hypertrophy. Mild foraminal stenosis. L4-L5: Mild annular disc bulging. There is very slight disc contact on the traversing L5 nerve roots, LEFT greater than RIGHT. Moderate ligamentum flavum and facet arthritis. No significant stenosis. L5-S1: Diffuse disc bulging with a central disc protrusion. Moderate to severe facet joint arthropathy and ligamentum flavum hypertrophy. LEFT foraminal disc osteophyte complex with significant contact on the LEFT exiting L5 nerve root. Greater stenosis as compared to 07/30/2022. Mild foraminal stenosis on the RIGHT. There is very slight disc contact on the S1 nerve roots, LEFT greater than RIGHT. Paravertebral soft tissues are negative. MR/MR lumbar spine wo con* [id number] IMPRESSION: 1. Very mild progression of degenerative changes in the lumbar spine and steno sis since 07/30/2022. 2. Moderate to severe bilateral facet joint arthropathy and ligamentum flavum hypertrophy at L5-S1. 3. LEFT foraminal disc osteophyte complex at L5-S1 with moderate to severe LEF T foraminal stenosis and contact on the exiting LEFT L5 nerve root. Mild forami nal stenosis on the RIGHT. 4. Mild disc encroachment upon the subarticular recesses and traversing L3 ner ve roots at L2-3. Mild foraminal stenosis. 5. Mild disc encroachment upon the subarticular recesses and traversing L4 ner ve roots. Mild foraminal stenosis at L3-4. 6. Mild disc contacting the traversing L5 nerve roots, LEFT greater than RIGHT . 7. No compression fractures.
== END 2025-02-21 09:33 | disposition home or self-care (01) ==
LOC: RAD 09:33
PROVIDERS: PCP Internal Medicine; Visit Provider Internal Medicine
DX: M47.26 Other spondylosis with radiculopathy, lumbar region (principal); M46.96 Unspecified inflammatory spondylopathy, lumbar region; M53.88 Other specified dorsopathies, sacral and sacrococcygeal region; G57.00 Lesion of sciatic nerve, unspecified lower limb
CPT/HCPCS: 72148

== ENCOUNTER 2025-03-05 09:00 | Outpatient (CLI) | payer MEDICARE, OTHER, SELFPAY ==
--- NOTE | 2025-03-05 09:11 | MR_ITS ---
WS: [id number] MRI BRAIN WITHOUT CONTRAST HISTORY: MILD CONGNITIVE IMPAIRMENT, Alzheimer treatment. COMPARISON: 12/04/2024, 11/07/2024 TECHNIQUE: Diffusion imaging, multiplanar T1, T2 and FLAIR imaging obtained. No evidence for acute infarct or hemorrhage. Lara-white matter differentiation is normal. Mild supratentorial white matter changes are stable compared to the prior studies. Stable mild to moderate parenchymal volume loss. Mild temporal lobe and hippocampal atrophy. No new signal changes. No prior infarct. Normal flow voids. Ventricles and extra-axial spaces are normal. No inferior displacement of cerebellar tonsils. The sella turcica and pituitary gland are unremarkable. Dural venous sinuses and osage of [place] demonstrate no abnormality on this unenhanced studies. Paranasal sinuses: Clear. Mastoid air cells: Fluid and mucoperiosteal thickening in the LEFT mastoid tip. Calvarium and scalp: Intact. MR/MR head wo con* [id number] IMPRESSION: 1. No acute infarcts or hemorrhage. 2. Stable small vessel changes and mild to moderate parenchymal volume loss. 3. No new white matter changes. 4. Mild LEFT mastoid air cell disease.
== END 2025-03-05 09:01 | disposition home or self-care (01) ==
LOC: RAD 09:02
PROVIDERS: PCP Internal Medicine; Visit Provider Specialist
DX: G31.84 Mild cognitive impairment of uncertain or unknown etiology (principal); G31.89 Other specified degenerative diseases of nervous system; R93.0 Abnormal findings on diagnostic imaging of skull and head, not elsewhere classified; H74.8X2 Other specified disorders of left middle ear and mastoid
CPT/HCPCS: 70551